=== PATIENT | female | born 1955 ===

== ENCOUNTER 2018-09-07 08:57 | Emergency (ER) | payer OTHER ==
[~2018-09-07] VITALS: Ht 157.5 cm; Wt 79.4 kg
[2018-09-07] MEDS ORDERED: METOPROLOL SUCC25 MG (09:26)
[2018-09-07] MEDS ORDERED: ZANTAC 7575 MG (09:26)
[2018-09-07] MEDS ORDERED: PREVACID15 MG (09:26)
[2018-09-07] MEDS ORDERED: CIPRO500 MG PO (13:15)
== END 2018-09-07 14:40 | disposition home or self-care (01) ==
LOC: ER 08:57
DX: N39.0 Urinary tract infection, site not specified (principal)

== ENCOUNTER 2021-02-07 09:45 | Outpatient (CLI) | payer OTHER ==
[~2021-02-07 09:45] MED LIST: CIPRO500 MG PO; METOPROLOL SUCC25 MG; PREVACID15 MG; ZANTAC 7575 MG
== END 2021-02-07 09:48 | disposition home or self-care (01) ==
LOC: SONOGRAMA 09:45
PROVIDERS: ATTEND Pathology Anatomic Pathology & Clinical Pathology
DX: E04.1 Nontoxic single thyroid nodule (principal)

== ENCOUNTER → 2021-05-09 | Outpatient (CLI) | payer OTHER | END | disposition home or self-care (01) | LOC: SONOGRAMA 10:32 | PROVIDERS: ATTEND Pathology Anatomic Pathology & Clinical Pathology | DX: E04.2 Nontoxic multinodular goiter (principal) ==